=== PATIENT | male | born 1950 | race Caucasian/White ===

== ENCOUNTER → 2019-02-08 | Outpatient (CLI) | payer MEDICARE ==
--- NOTE | 2019-02-08 11:03 | KCIC ---
HIP BILATERAL WITH PELVIS History: Bilateral hip pain. Comparison: None. Findings: AP view of the pelvis and 2 additional views of bilateral hips. Normal alignment of the hips bilaterally. No fracture. Soft tissues unremarkable. Advanced lower lumbar spondylosis. Impression: 1. Unremarkable radiographic appearance of the bilateral hips. 2. Advanced lower lumbar spondylosis. Electronically signed by: Geovany Hardin DO (02/08/2019 11:00 AM) [id number]
== END | disposition home or self-care (01) ==
LOC: KCIC 08:23
PROVIDERS: ATTEND Family Medicine
DX: M47.816 Spondylosis without myelopathy or radiculopathy, lumbar region (principal)
CPT/HCPCS: 73521

== ENCOUNTER → 2019-07-17 | Outpatient (CLI) | payer MEDICARE ==
--- NOTE | 2019-07-17 17:00 | KCIC ---
EXAMINATION: Magnetic resonance imaging (MRI) of the lumbar spine without contrast 07/17/2019 5:00 PM HISTORY: Low back pain. Right-sided radiculopathy and spondylosis TECHNIQUE: Multiplanar multi-weighted MRI of the lumbar spine was performed without intravenous contrast using the standard lumbar spine protocol. Contrast information: None administered. COMPARISON: None available. FINDINGS: There is grade 1 anterolisthesis of L4 on L5. Suggestion of chronic L4 pars defects. Advanced disc height loss at L4-L5 with Modic type I endplate degenerative changes. There is disc desiccation at L1-L2, L2-L3 and L4-L5. Conus medullaris terminates at L1. Distal spinal cord signal intensity is normal in all sequences. Osseous hemangioma is identified at L1. Mild anterior marginal osteophytosis is present. No acute fracture is visualized. Abdominal aorta is normal in course and caliber. No suspicious retroperitoneal abnormality is visualized. Visualized portions of the sacrum appear intact. L1-L2: There is mild disc bulge with right far lateral disc protrusion. No significant facet arthropathy. No neuroforaminal or spinal canal stenosis. L2-L3: There is mild disc bulge asymmetric to the right. Mild facet arthropathy. No neuroforaminal or spinal canal stenosis. L3-L4: Disc is normal in configuration. There is moderate facet arthropathy with ligamentum flavum infolding. No significant neuroforaminal or spinal canal stenosis. L4-L5: There is a posterior disc osteophyte complex. There is moderate facet arthropathy. Moderate to severe bilateral neuroforaminal stenosis. No spinal canal stenosis. L5-S1: Disc is normal in configuration. There is moderate facet arthropathy. No neuroforaminal or spinal canal stenosis. IMPRESSION: 1. Grade 1 anterolisthesis of L4 on L5 with moderate to severe bilateral neuroforaminal stenosis. Findings may be secondary to chronic bilateral L4 large defect. Eccentric 2. Mild degenerative changes of lumbar spine, as described in detail above. Electronically signed by: Latasha Bailey MD (07/17/2019 4:57 PM) [id number]
== END | disposition home or self-care (01) ==
LOC: KCIC MRI 15:28
PROVIDERS: ATTEND Family Medicine
DX: M51.26 Other intervertebral disc displacement, lumbar region (principal); M43.16 Spondylolisthesis, lumbar region; M48.061 Spinal stenosis, lumbar region without neurogenic claudication; M25.78 Osteophyte, vertebrae; D18.09 Hemangioma of other sites
CPT/HCPCS: 72148

== ENCOUNTER → 2020-05-20 | Outpatient (CLI) | payer MEDICARE ==
--- NOTE | 2020-05-20 13:33 | KCIC ---
EXAMINATION: MRI RIGHT HIP WITHOUT IV CONTRAST CLINICAL HISTORY: Progressive right hip and groin pain concerning for labrum tear TECHNIQUE: Multiplanar multisequential images obtained through the hip without intravenous contrast. COMPARISON: Bilateral hip radiographs 02/08/2019 FINDINGS: Right Hip: Marked superolateral joint space narrowing with [id number] contact and extensive subchondral marrow reactive/cystic changes in the acetabulum and femoral head. More geometric focal lesion suggested in the superior femoral head. No articular surface collapse. Small joint effusion. Labral degeneration and degenerative tearing. Left Hip: No acute fracture. No avascular necrosis. Large field of view images limits evaluation of labrum and cartilage. Sacroiliac Joints: Within normal limits. Pubic Symphysis: Within normal limits. Tendons: Mild tendinosis right hamstrings origin. Mild insertional tendinosis right gluteus medius and minimus tendons. Right iliopsoas and rectus femoris tendons within normal limits. Muscles: Within normal limits. Bone Marrow: No acute fracture or suspicious marrow replacing process. Partially visualized lumbar degenerative changes. IMPRESSION: Findings highly concerning for avascular necrosis without articular surface collapse in the right femoral head and advanced secondary osteoarthritis. Septic arthritis would also be a differential consideration in the appropriate clinical setting, correlate clinically. Electronically signed by: Sergei Villeda DO (05/20/2020 1:30 PM) [id number]
== END ==
LOC: KCIC MRI 10:26
PROVIDERS: ATTEND Family Medicine
DX: S73.101A Unspecified sprain of right hip, initial encounter (principal); M25.451 Effusion, right hip; M00.9 Pyogenic arthritis, unspecified; X58.XXXA Exposure to other specified factors, initial encounter; Y93.89 Activity, other specified; Y92.89 Other specified places as the place of occurrence of the external cause; Y99.8 Other external cause status
CPT/HCPCS: 73721

== ENCOUNTER → 2021-11-17 | Outpatient (CLI) | payer MEDICARE ==
--- NOTE | 2021-11-17 16:43 | KCIC ---
CT abdomen and pelvis without contrast PQRS statement: CT scans at this facility use dose reduction including either automated exposure cont rol, iterative reconstructions, and /or weight based radiation dosing via mA and kV modification when appropriate to reduce radiation dose to as low as reasonably achievable. HISTORY: Renal stone. COMPARISON: CT abdomen and pelvis October 13, 2021 FINDINGS: 4 mm nodule left lower lobe abutting the major fissure image 20, stable. Indistinct 1 cm ri ght renal upper pole hypodensity measuring 4 units consistent with a cyst. Mild bilateral perinephric edema. No urinary calculi or hydronephrosis evident. The distal left ureteral calculus on the prior exam has since resolved. Mild fatty atrophy of the pancreas. Adrenals, spleen, gallbladder unremarkab le. Couple subcentimeter hypodensities the liver at the gallbladder fossa is stable statistically mos t likely small cysts or hemangiomas. There is a small anterior right diaphragmatic eventration contai beni the hepatic flexure of the large bowel. No obstruction or inflammation GI tract. Appendix is abs ent. Tortuosity and calcified plaque in the L4 spondylolysis defects with advanced disc disease L4-5 and severe bilateral L4-5 neural foraminal stenoses and mild to moderate spinal canal stenosis. L1 ve rtebral osseous hemangioma. Pelvis findings: Streak artifact from right hip arthroplasty limits visualization of the distal right ureter as well as of the pelvic organs may limit the ability to detect bladder were ureteral calculi . Additional bladder or distal ureteral calculi are evident. Prostate, rectum unremarkable. No pelvic f luid. IMPRESSION: 1. The left distal ureteral calculus on the prior exam has since passed. The left renal hydronephrosi s has resolved. No urinary calculi or obstructive uropathy evident. 2. Other incidental findings as described above. Electronically signed by: Sanford Terry MD (11/17/2021 4:40 PM) [facility]
== END ==
LOC: KCIC CT 13:09
PROVIDERS: ATTEND Urology
DX: N20.1 Calculus of ureter (principal); K86.89 Other specified diseases of pancreas; N28.89 Other specified disorders of kidney and ureter; D18.09 Hemangioma of other sites; M47.816 Spondylosis without myelopathy or radiculopathy, lumbar region; M48.061 Spinal stenosis, lumbar region without neurogenic claudication; M51.36 Other intervertebral disc degeneration, lumbar region; Z87.442 Personal history of urinary calculi
CPT/HCPCS: 74176